=== PATIENT | female | born 1945 | race African-American/Black ===

== ENCOUNTER 2017-04-28 22:39 | Inpatient (IN) | payer OTHER, BC ==
[~2017-04-28] VITALS: Ht 167.6 cm; Wt 53.9 kg
--- NOTE | ~2017-04-28 | EKG ---
[place] [address] [facility] [place] [address] ELECTROCARDIOGRAM REPORT Name: LIZMARIE Room #: 206-P ADM IN M.R.#: [id number] Admission: 04/29/17 Attend Phys: Humphrey Ornelas DO Discharge: Date of : 41 Report #: [id number] THIS REPORT FOR: //name// [facility] Test Date: 2017-04-29 Test Time: 09:48:05 Pat Name: MARIE HILL Department: Room: 206 Gender: F Activity Therapy Specialist: Tanvi JUAREZ : 1945 Requested By: Humphrey Ornelas Order Number: [id number] MD: Fco Yadav Measurements Intervals [place] Rate: 115 P: 77 OR: 173 QRS: 82 QRSD: 88 T: 59 QT: 323 QTc: 447 Interpretive Statements Sinus tachycardia Occasional premature ventricular complexes Biatrial enlargement Baseline wander in lead(s) V6 Compared to ECG 12/09/2014 14:39:22 premature ventricular complexes are now present Electronically Signed On 05-01-2017 13:09:31 CDT by Fco Yadav [email or web address] <ELECTRONICALLY SIGNED> By: Fco Yadav MD, [facility] 05/01/17 1309 0948 0948 Fco Yadav MD, [facility] /EPI
--- NOTE | ~2017-04-28 | 2DMMODE ---
[facility] [address] [facility] [place] [address] 2 D/M-MODE ECHOCARDIOGRAM Name: MARIE HILL Room #: 206-P [facility] IN M.R.#: [id number] Admission: 04/29/17 Attend Phys: Humphrey Ornelas, Discharge: Date of : 41 Date of Service: 04/30/171954 Report #: [id number] THIS REPORT FOR: //name// APPROVED REPORT Study performed: 04/30/2017 11:12:54 EXAM: Comprehensive 2D, Doppler, and color-flow Echocardiogram Patient Location: Bedside Room #: 206 Status: on-call Other Information Study Quality: Adequate Indications COPD Dyspnea Hypertension/HDD 2D Dimensions LVEF(%): 65.21 (>50%) IVSd: 12.11 (7-11mm) LVOT Diam: 19.00 (18-24mm) LVDd: 30.79 mm PWd: 11.58 (7-11mm) Ascending Ao: 22.71 (22-36mm) LVDs: 20.15 (25-40mm) Aortic Root: 26.78 mm Brock's LVEF: 65.21 % Volumes Left Atrial Volume (Systole) Single Plane 4CH: 23.33 mL Single Plane 2CH: 21.04 mL LA ESV Index: 16.00 mL/m2 Aortic Valve AoV Peak Jeremy.: 1.42 m/s AO Peak Gr.: 9.12 mmHg LVOT Max P.81 mmHg LVOT Max V: 0.84 m/s THELMA Vmax: 1.62 cm2 Mitral Valve E/A Ratio: 0.8 MV Decel. Time: 186.06 ms MV E Max Jeremy.: 0.79 m/s MV A Jeremy.: 0.99 m/s [facility] [place] [address] 2 D/M-MODE ECHOCARDIOGRAM Name: LIZMARIE Room #: 206-P [facility] IN M.R.#: [id number] Admission: 04/29/17 Attend Phys: Humphrey Ornelas, Discharge: Date of : 41 Date of Service: 04/30/171954 Report #: [id number] MV PHT: 53.96 ms IVRT: 73.82 ms Pulmonary Valve PV Peak Jeremy.: 0.81 m/s PV Peak Gr.: 2.67 mmHg Tricuspid Valve TR Peak Jeremy.: 3.98 m/s RAP Estimate: 5.00 mmHg TR Peak Gr.: 63.00 mmHg PA Pressure: 68.00 mmHg Left Ventricle The left ventricle is normal size. There is normal LV segmental wall motion. Mild concentric left ventricular hypertrophy. Left ventricular systolic function is normal. The left ventricular ejection fraction is within the normal range. Grade I - abnormal relaxation pattern. Right Ventricle The right ventricle is normal size. The right ventricular systolic function is normal. Atria The left atrium size is normal. The right atrium size is normal. Aortic Valve The aortic valve is normal in structure. No aortic regurgitation is present. There is no aortic valvular stenosis. Mitral Valve The mitral valve is normal in structure. There is no mitral valve regurgitation noted. No evidence of mitral valve stenosis. Tricuspid Valve The tricuspid valve is normal in structure. Mild tricuspid regurgitation. Pulmonic Valve The pulmonary valve is normal in structure. There is no pulmonic valvular regurgitation. Great Vessels The aortic root is normal in size. IVC is normal in size and collapses with >50% inspiration [facility] [address] [place] [address] 2 D/M-MODE ECHOCARDIOGRAM Name: MARIE HILL Room #: 206-P [facility] IN M.R.#: [id number] Admission: 04/29/17 Attend Phys: Humphrey Ornelas, Discharge: Date of : 41 Date of Service: 04/30/171954 Report #: [id number] Pericardium There is no pericardial effusion. <Conclusion> The left ventricle is normal size. Mild concentric left ventricular hypertrophy. Left ventricular systolic function is normal. The left ventricular ejection fraction is within the normal range. Grade I - abnormal relaxation pattern. The right ventricle is normal size. The left atrium size is normal. The right atrium size is normal. No aortic regurgitation is present. There is no mitral valve regurgitation noted. Mild tricuspid regurgitation. There is no pericardial effusion. <ELECTRONICALLY SIGNED> By: Foreign Luz MD, FACC 04/30/171954 54 54 Foreign Luz MD, FACC /INF
[~2017-04-28 22:39] MED LIST: AMLODIPINE BESY10 MG PO; CITRATE OF MAG296 ML PO; LACTASE ENZ4500 UNIT PO; NEXIUM40 MG PO; SLOW-MAG64 MG PO; SPIRIVA INH; SYMBICORT160 MCG/4. INH; VENTOLIN HFA 1818 GM INH
[2017-04-28 22:40] VITALS: BP 187/91
[2017-04-28 23:45] LABS: BASOPHILS 0.4 % (0.0-2.0); EOSINOPHILS 0.3 % (0.0-3.0); HEMATOCRIT 48.9 % (37.0-47.0); HEMOGLOBIN 15.6 gm/dL (12.0-15.0); LYMPHOCYTES 22.3 % (24.0-44.0); MCH 27.5 pg (26.0-34.0); MCHC 31.8 g/dL (28.0-37.0); MCV 86.4 fL (80.0-100.0); MONOCYTES 7.8 % (1.0-8.0); PLATELET COUNT 181 thou/uL (150-400); POLYS 69.2 % (36.0-66.0); RBC 5.66 mil/uL (4.20-5.00); RDW 15.1 % (10.5-14.5); WBC 8.7 thou/uL (4.0-11.0)
[2017-04-28 23:47] LABS: CALCIUM 10.1 mg/dL (8.5-10.1); CREATININE 1.2 mg/dL (0.6-1.0); POTASSIUM 4.1 mmol/L (3.5-5.1)
[2017-04-28 23:49] LABS: MANUAL DIFF NO
[2017-04-29 02:00] VITALS: BP 159/84
[2017-04-29 02:30] VITALS: BP 182/86
[2017-04-29 07:05] VITALS: BP 171/75
[2017-04-29 09:26] LABS: ABG SAMPLE TYPE ARTERIAL; BE(vivo) 0.2 mmol/L (-2 to +3); HCO3 27.9 mmol/L (22.0-26.0); LACTATE 2.12 mmol/L (0.5-2.0); O2(CT) 21.3 mL/dL (15.0-23.0); O2Hb 89.7 % (92.0-98.0); PCO2 56.2 mmHg (35.0-45.0); PO2 62.3 mmHg (80.0-100.0); sO2 89.5 % (92.0-98.0); tCO2 29.6 mmol/L (24.0-30.0)
[2017-04-29 09:27] LABS: STICK SITE L.RADIAL; pH 7.313 (7.360-7.450)
[2017-04-29 14:25] LABS: HEMATOCRIT 49.3 % (37.0-47.0); HEMOGLOBIN 15.7 gm/dL (12.0-15.0); MCH 27.5 pg (26.0-34.0); MCHC 31.8 g/dL (28.0-37.0); MCV 86.5 fL (80.0-100.0); RBC 5.69 mil/uL (4.20-5.00); RDW 15.1 % (10.5-14.5); WBC 15.6 thou/uL (4.0-11.0)
[2017-04-29 15:05] VITALS: BP 133/75
[2017-04-29 19:42] VITALS: BP 161/84
[2017-04-29 21:49] LABS: INR 1.1; PROTIME 11.8 Seconds (9.3-11.4)
[2017-04-29 21:55] LABS: APTT 107.3 Seconds (24.5-32.8)
[2017-04-30 04:35] VITALS: BP 126/68
[2017-04-30 07:46] LABS: CALCIUM 10.5 mg/dL (8.5-10.1); CREATININE 2.1 mg/dL (0.6-1.0); POTASSIUM 4.6 mmol/L (3.5-5.1)
[2017-04-30 07:50] VITALS: BP 126/77
[2017-04-30 12:10] VITALS: BP 134/67
[2017-04-30 16:45] VITALS: BP 142/76
[2017-04-30 19:52] VITALS: BP 147/79
[2017-05-01 04:10] VITALS: BP 120/61
[2017-05-01 05:28] LABS: HEMATOCRIT 43.3 % (37.0-47.0); HEMOGLOBIN 14.1 gm/dL (12.0-15.0); MCH 27.7 pg (26.0-34.0); MCHC 32.7 g/dL (28.0-37.0); MCV 84.7 fL (80.0-100.0); PLATELET COUNT 175 thou/uL (150-400); RBC 5.11 mil/uL (4.20-5.00); RDW 15.1 % (10.5-14.5); WBC 17.2 thou/uL (4.0-11.0)
[2017-05-01 05:32] LABS: MANUAL DIFF YES
[2017-05-01 05:40] LABS: CALCIUM 10.1 mg/dL (8.5-10.1); CREATININE 1.8 mg/dL (0.6-1.0); POTASSIUM 4.7 mmol/L (3.5-5.1)
[2017-05-01 07:03] LABS: ABSOLUTE NEUTROPHILS 16.2 thou/uL (1.4-8.2); PLATELET ESTIMATE NORMAL; TOTAL CELL COUNT 100
[2017-05-01 07:35] VITALS: BP 139/71
[2017-05-01 11:10] VITALS: BP 109/61
[2017-05-01 15:35] VITALS: BP 148/71
[2017-05-01 20:41] VITALS: BP 161/80
[2017-05-01 22:09] VITALS: BP 156/74
[2017-05-02 04:41] VITALS: BP 148/78
[2017-05-02 07:45] VITALS: BP 129/68
[2017-05-02 11:35] VITALS: BP 158/80
[2017-05-02 15:40] VITALS: BP 172/76
[2017-05-02 19:46] VITALS: BP 174/86
[2017-05-02 23:43] VITALS: BP 150/84
[2017-05-03 07:06] LABS: HEMATOCRIT 43.5 % (37.0-47.0); MCH 27.3 pg (26.0-34.0); MCHC 32.1 g/dL (28.0-37.0); MCV 85.1 fL (80.0-100.0); PLATELET COUNT 199 thou/uL (150-400); RBC 5.11 mil/uL (4.20-5.00); RDW 15.4 % (10.5-14.5); WBC 11.3 thou/uL (4.0-11.0)
[2017-05-03 07:14] LABS: MANUAL DIFF YES
[2017-05-03 07:54] VITALS: BP 152/73
[2017-05-03 07:57] LABS: CALCIUM 10.7 mg/dL (8.5-10.1); POTASSIUM 4.8 mmol/L (3.5-5.1)
[2017-05-03 08:24] LABS: ABSOLUTE NEUTROPHILS 10.7 thou/uL (1.4-8.2); ANISOCYTOSIS 1+; METAMYELOCYTES 1 %; TOTAL CELL COUNT 100
[2017-05-03 12:15] VITALS: BP 145/71
[2017-05-03 15:50] VITALS: BP 1332/55
[2017-05-03] MEDS ORDERED: HEPARIN SO5000 UNIT/ SUBQ (16:22)
[2017-05-03] MEDS ORDERED: CARDIZEM CD 18180 M3 PO (16:22)
[2017-05-03] MEDS ORDERED: DUONEB 2.5-0.5 M3 ML INH (16:22)
[2017-05-03] MEDS ORDERED: LEVAQUIN 750 M750 MG PO (16:22)
[2017-05-03] MEDS ORDERED: PEPCID20 MG PO (16:23)
[2017-05-03] MEDS ORDERED: SOLU-MEDRO125 MG/24 IV PUSH (16:23)
[2017-05-03] MEDS ORDERED: ALPRAZOLAM 0.50.5 MG PO (16:23)
[2017-05-03 17:07] VITALS: BP 145/71
== END 2017-05-03 18:15 | DRG 871 ==
LOC: ER 22:39 → 4E 04-29 01:39 → 2N 04-29 01:39 → EROBS 04-29 01:39 → 2N 04-29 02:24 → 4E 04-29 02:31 → 2N 04-29 10:29
PROVIDERS: Emergency Medicine; Family Medicine; Internal Medicine Geriatric Medicine; Internal Medicine Pulmonary Disease
PROC: 5A09357 Assistance with Respiratory Ventilation, Less than 24 Consecutive Hours, Continuous Positive Airway Pressure (ICD-10-PCS; principal; 2017-04-29)
DX: A41.9 Sepsis, unspecified organism (principal); J96.21 Acute and chronic respiratory failure with hypoxia; J96.22 Acute and chronic respiratory failure with hypercapnia; N17.9 Acute kidney failure, unspecified; J44.1 Chronic obstructive pulmonary disease with (acute) exacerbation; E46 Unspecified protein-calorie malnutrition; Z68.1 Body mass index [BMI] 19.9 or less, adult; I27.2 Other secondary pulmonary hypertension; I27.81 Cor pulmonale (chronic); K21.9 Gastro-esophageal reflux disease without esophagitis; I12.9 Hypertensive chronic kidney disease with stage 1 through stage 4 chronic kidney disease, or unspecified chronic kidney disease; N18.9 Chronic kidney disease, unspecified; N60.19 Diffuse cystic mastopathy of unspecified breast; Z79.899 Other long term (current) drug therapy; Z88.8 Allergy status to other drugs, medicaments and biological substances; Z91.041 Radiographic dye allergy status; Z87.891 Personal history of nicotine dependence
CPT/HCPCS: 10081

== ENCOUNTER 2017-05-03 14:32 | Inpatient (IN) | payer OTHER, BC ==
[~2017-05-03] VITALS: Ht 167.6 cm; Wt 53.5 kg
[2017-05-03] MEDS ORDERED: CARDIZEM CD 18180 M3 PO (16:22)
[2017-05-03] MEDS ORDERED: HEPARIN SO5000 UNIT/ SUBQ (16:22)
[2017-05-03] MEDS ORDERED: LEVAQUIN 750 M750 MG PO (16:22)
[2017-05-03] MEDS ORDERED: DUONEB 2.5-0.5 M3 ML INH (16:22)
[2017-05-03] MEDS ORDERED: PEPCID20 MG PO (16:23)
[2017-05-03] MEDS ORDERED: SOLU-MEDRO125 MG/24 IV PUSH (16:23)
[2017-05-03] MEDS ORDERED: ALPRAZOLAM 0.50.5 MG PO (16:23)
[2017-05-03 19:00] VITALS: BP 145/84
[2017-05-04 06:32] VITALS: BP 135/68
[2017-05-04 15:30] VITALS: BP 162/74
[2017-05-05 04:40] VITALS: BP 147/72
[2017-05-05 16:00] VITALS: BP 133/77
[2017-05-06 04:00] VITALS: BP 142/76
[2017-05-06 16:00] VITALS: BP 146/85
[2017-05-07 04:23] VITALS: BP 156/68
[2017-05-07 15:45] VITALS: BP 166/78
[2017-05-08 05:49] VITALS: BP 159/81
[2017-05-08 15:45] VITALS: BP 156/60
[2017-05-09 05:41] VITALS: BP 163/82
[2017-05-09 09:00] VITALS: BP 151/72
[2017-05-09 16:00] VITALS: BP 147/74
[2017-05-10 04:00] VITALS: BP 162/72
[2017-05-10 10:19] LABS: ABG SAMPLE TYPE ARTERIAL; BE(vivo) 16.9 mmol/L (-2 to +3); HCO3 44.8 mmol/L (22.0-26.0); LACTATE 1.89 mmol/L (0.5-2.0); O2(CT) 20.4 mL/dL (15.0-23.0); O2Hb 93.3 % (92.0-98.0); PO2 66.4 mmHg (80.0-100.0); pH 7.453 (7.360-7.450); sO2 93.3 % (92.0-98.0); tCO2 46.8 mmol/L (24.0-30.0)
[2017-05-10 10:20] LABS: PCO2 65.5 mmHg (35.0-45.0)
[2017-05-10 10:21] LABS: STICK SITE R.BRACHIAL
[2017-05-10 12:22] LABS: HEMATOCRIT 45.9 % (37.0-47.0); HEMOGLOBIN 14.8 gm/dL (12.0-15.0); MCH 27.4 pg (26.0-34.0); MCHC 32.3 g/dL (28.0-37.0); MCV 85.1 fL (80.0-100.0); PLATELET COUNT 242 thou/uL (150-400); RBC 5.39 mil/uL (4.20-5.00); RDW 14.1 % (10.5-14.5); WBC 15.6 thou/uL (4.0-11.0)
[2017-05-10 12:23] LABS: MANUAL DIFF YES
[2017-05-10 12:30] LABS: BUN 21 mg/dL (7-18); CALCIUM 11.7 mg/dL (8.5-10.1); CHLORIDE 91 mmol/L (98-107); GLUCOSE 126 mg/dL (74-106); POTASSIUM 3.8 mmol/L (3.5-5.1); SODIUM 133 mmol/L (136-145)
[2017-05-10 12:47] LABS: ANION GAP < 0 mmol/L (7-16); CO2 43 mmol/L (21-32)
[2017-05-10 13:42] LABS: ABSOLUTE NEUTROPHILS 14.4 thou/uL (1.4-8.2); TOTAL CELL COUNT 100
[2017-05-10 16:00] VITALS: BP 184/90
[2017-05-11 05:43] VITALS: BP 148/67
[2017-05-11 10:27] LABS: URINE BILIRUBIN NEGATIVE (Negative); URINE BLOOD NEGATIVE (Negative); URINE COLOR YELLOW; URINE GLUCOSE-RANDOM* NEGATIVE (Negative); URINE KETONES NEGATIVE (Negative); URINE LEUKOCYTES-REFLEX NEGATIVE (Negative); URINE PROTEIN (DIPSTICK) NEGATIVE (Negative); URINE SPECIFIC GRAVITY <= 1.005 (1.003-1.035); URINE UROBILINOGEN 0.2 E.U./dl (0.2-1.0)
[2017-05-11 16:00] VITALS: BP 139/57
[2017-05-11 17:09] LABS: ALBUMIN 3.6 g/dL (2.9-4.4); ALPHA 1 0.2 g/dL (0.0-0.4); BETA 0.8 g/dL (0.7-1.3); GAMMA 1.5 g/dL (0.4-1.8); M-SPIKE Not Observed g/dL (Not Observed)
[2017-05-11 17:48] LABS: ABG SAMPLE TYPE ARTERIAL; BE(vivo) 15.3 mmol/L (-2 to +3); HCO3 42.8 mmol/L (22.0-26.0); LACTATE 2.61 mmol/L (0.5-2.0); O2(CT) 16.6 mL/dL (15.0-23.0); O2Hb 76.5 % (92.0-98.0); PCO2 62.7 mmHg (35.0-45.0); PO2 39.2 mmHg (80.0-100.0); pH 7.452 (7.360-7.450); sO2 74.6 % (92.0-98.0); tCO2 44.7 mmol/L (24.0-30.0)
[2017-05-11 17:50] LABS: STICK SITE L.RADIAL
[2017-05-11 19:20] VITALS: BP 171/74
[2017-05-12 04:11] VITALS: BP 151/78
[2017-05-12 07:37] LABS: ABG SAMPLE TYPE ARTERIAL; BE(vivo) 17.2 mmol/L (-2 to +3); HCO3 45.5 mmol/L (22.0-26.0); LACTATE 2.04 mmol/L (0.5-2.0); O2(CT) 19.4 mL/dL (15.0-23.0); O2Hb 93.8 % (92.0-98.0); PO2 75.6 mmHg (80.0-100.0); pH 7.435 (7.360-7.450); tCO2 47.6 mmol/L (24.0-30.0)
[2017-05-12 07:38] LABS: PCO2 69.3 mmHg (35.0-45.0); STICK SITE L.BRACHIAL
[2017-05-12 16:12] VITALS: BP 174/56
[2017-05-12] MEDS ORDERED: BUSPIRONE HCL5 MG PO (21:55)
[2017-05-12] MEDS ORDERED: LEVAQUIN 750 M750 MG PO (21:55)
[2017-05-12] MEDS ORDERED: DUONEB 2.5-0.5 M3 ML INH (21:55)
[2017-05-12] MEDS ORDERED: COLACE100 MG PO (21:55)
[2017-05-12] MEDS ORDERED: BAYER CHEWABLE81 MG PO (21:55)
[2017-05-12] MEDS ORDERED: PREDNISONE 10 M10 MG PO ×2 (21:55→21:59)
[2017-05-13 06:43] VITALS: BP 159/80
[2017-05-13 15:15] VITALS: BP 163/56
[2017-05-13] MEDS ORDERED: XANAX 0.25 MG0.25 MG PO (20:16)
[2017-05-14 06:51] VITALS: BP 164/68
== END 2017-05-14 10:22 | DRG 947 ==
LOC: 2N 18:55 → TBA 05-04 09:28
PROVIDERS: Hospitalist; Internal Medicine Pulmonary Disease; Nurse Practitioner; Physical Medicine & Rehabilitation
PROC: 5A09357 Assistance with Respiratory Ventilation, Less than 24 Consecutive Hours, Continuous Positive Airway Pressure (ICD-10-PCS; principal; 2017-05-12)
DX: R53.81 Other malaise (principal); J96.21 Acute and chronic respiratory failure with hypoxia; J96.22 Acute and chronic respiratory failure with hypercapnia; N17.9 Acute kidney failure, unspecified; R64 Cachexia; J44.1 Chronic obstructive pulmonary disease with (acute) exacerbation; E87.2 Acidosis; E46 Unspecified protein-calorie malnutrition; Z68.1 Body mass index [BMI] 19.9 or less, adult; I27.2 Other secondary pulmonary hypertension; K59.00 Constipation, unspecified; J30.2 Other seasonal allergic rhinitis; I10 Essential (primary) hypertension; N18.9 Chronic kidney disease, unspecified; K21.9 Gastro-esophageal reflux disease without esophagitis; I12.9 Hypertensive chronic kidney disease with stage 1 through stage 4 chronic kidney disease, or unspecified chronic kidney disease; F41.1 Generalized anxiety disorder; F40.00 Agoraphobia, unspecified; F32.9 Major depressive disorder, single episode, unspecified; Z88.8 Allergy status to other drugs, medicaments and biological substances; Z91.041 Radiographic dye allergy status; Z83.6 Family history of other diseases of the respiratory system
CPT/HCPCS: 10112

== ENCOUNTER 2017-05-18 16:08 | Inpatient (IN) | payer OTHER, BC ==
[~2017-05-18] VITALS: Ht 170.2 cm; Wt 69.2 kg
[2017-05-18] VITALS (19 sets, daily range): BP systolic 119–204; BP diastolic 57–129
--- NOTE | ~2017-05-18 | HC ---
[facility] [place] [address] CONSULTATION Name: MARIE HILL Room #: 214-P [facility] IN M.R.#: [id number] Admission: 05/18/17 Attend Phys: Chaim Matos Discharge: Date of : 41 Report #: [id number] THIS REPORT FOR: //name// CC: Chaim Sosadee deealdo Choco Prater DATE OF SERVICE: 05/24/2017 Calcium slightly higher at 10.4, phosphorus 2.1, ionized calcium elevated at 6.5. Heart rate down. The patient much more alert and eating with assistance by her daughter. Now on antithyroid medication in the form of methimazole 10 mg b.i.d.; however, this will take days to weeks to become effective as it will do nothing with a previously manufactured thyroid hormone, but only help to prevent formation of a subsequent thyroid hormone. Current corticosteroids will help somewhat. Beta blockers if potentially useful in the low dose may be helpful and avoidance of dehydration. We will help to keep the calcium under control. The patient is now receiving range of motion exercises for 15 minutes q.i.d. in an effort to lower calcium mobilization and prevent immobilization. We will continue current regimen. <ELECTRONICALLY SIGNED> By: Panda Dias MD 05/25/17 0829 1308 1604 Panda Dias MD /nt
--- NOTE | ~2017-05-18 | HC ---
[facility] [place] [place] [address] CONSULTATION Name: MARIE HILL Room #: 210-P [facility] IN M.R.#: [id number] Admission: 05/18/17 Attend Phys: Chaim Matos Discharge: Date of : 41 Report #: [id number] THIS REPORT FOR: //name// CC: Chaim Sosadee deealdo Wilhelm Moi DATE OF SERVICE: 05/27/2017 Continuing current medication. However, the patient is now on comfort care only. Therefore, I have suspended any laboratory followup and will sign off patient's case at this time. If conditions change and further treatment of endocrine disorder is indicated, please do not hesitate to recontact me. <ELECTRONICALLY SIGNED> By: Panda Dias MD 05/27/17 1624 1105 1135 Panda Dias MD /nt
--- NOTE | ~2017-05-18 | HC ---
[facility] [place] [address] CONSULTATION Name: LIZMARIE Room #: 210-P ADM IN M.R.#: [id number] Admission: 05/18/17 Attend Phys: Chaim Matos Discharge: Date of : 41 Report #: [id number] THIS REPORT FOR: //name// CC: Chaim Wilhelm Moi DATE OF SERVICE: 05/26/2017 ENDOCRINE PROGRESS NOTE The patient continues slow improvement. Heart rate down and lab improving with calcium and phosphorus 10.1 and 2.8 respectively with focus on decreasing calcium mobilization through physical activity and now low-dose beta blockade. Continuing high-dose methimazole loading to eventually lower thyroid level. We will continue current regimen and monitoring. <ELECTRONICALLY SIGNED> By: Panda Dias MD 05/27/17 1054 1103 1155 Panda Dias MD /nt
--- NOTE | ~2017-05-18 | EKG ---
[address] [address] ELECTROCARDIOGRAM REPORT Name: MARIE HILL Room #: 170-8 ADM IN M.R.#: [id number] Admission: 05/18/17 Attend Phys: Chaim Matos Discharge: Date of : 41 Report #: [id number] THIS REPORT FOR: //name// [facility] Test Date: 2017-05-18 Test Time: 16:34:11 Pat Name: MARIE HILL Department: Room: 170 Gender: F Day Treatment Clinician/Art Therapist: MZOOK : 1945 Requested By: Zuleima Patel Order Number: [id number] MD: Fco Yadav Measurements Intervals [place] Rate: 93 P: 85 UT: 118 QRS: 47 QRSD: 83 T: 71 QT: 342 QTc: 426 Interpretive Statements Sinus rhythm Borderline short UT interval Right atrial enlargement Borderline T abnormalities, lateral leads Compared to ECG 04/29/2017 09:48:05 Sinus tachycardia no longer present Ventricular premature complex(es) no longer present Electronically Signed On 05-18-2017 17:22:38 CDT by Fco Yadav [email or web address] <ELECTRONICALLY SIGNED> By: Fco Yadav MD, FACC 05/18/17 1722 1634 1634 Fco Yadav MD, [facility] /EPI
--- NOTE | ~2017-05-18 | HC ---
[facility] [place] [address] CONSULTATION Name: MARIE HILL Room #: 214-P [facility] IN M.R.#: [id number] Admission: 05/18/17 Attend Phys: Chaim Matos Discharge: Date of : 41 Report #: [id number] THIS REPORT FOR: //name// CC: Chaim LuMikki Prater DATE OF SERVICE: 05/23/2017 ENDOCRINE CONSULTATION PATIENT ____ OF: Chaim Gallo MD. SUBJECTIVE: Prolonged admission for this 72-year-old black female admitted for respiratory failure, hypercapnia, pneumonia, etc. During her hospitalization, the patient has been found to be hypercalcemic with an elevated ionized calcium and intact PTH level. She has no prior history of hypercalcemia according to the daughter from whom most of the information is obtained and there is no family history of calcium disorders. The patient has not been on hydrochlorothiazide or other medication that can elevate calcium. In addition, the patient's thyroid function has been elevated with a depressed TSH repeated on several recent occasions. There is no personal or family history of thyroid disease and the patient has not been on amiodarone or other medication that can cause thyroid abnormalities. CURRENT MEDICATIONS: At the time of consultation include prednisone nasal spray, calcitonin, diltiazem, enoxaparin, famotidine, levofloxacin, tobramycin, lactase, piperacillin, lispro insulin by sliding scale, lorazepam, hydralazine, alprazolam, magnesium sulfate, magnesium oxide, potassium chloride, zolpidem, p.r.n. nitroglycerin, ondansetron, morphine, acetaminophen, methylprednisolone and possibly other medication. Otherwise, there is no pertinent personal or family history to report at this time. OBJECTIVE: LABORATORY DATA: From earlier on this admission, sodium 137, potassium 4.1, chloride 99, CO2 42, BUN 35, creatinine 1.0, glucose 265, AST 20, bilirubin 0.3, calcium 10.2 (but has been as high as 11.7 during this admission) phosphorus 2.4, magnesium 2.2, alkaline phosphatase 91, SGPT 40, total protein 5.3, albumin 2.1, free T4 was 0.92, TSH 0.065. Ionized calcium 6.0. PHYSICAL EXAMINATION: GENERAL: Frail 72-year-old black female in no acute distress, but does not respond to verbal or tactile stimuli. The patient has muscle wasting and what appear to be contractures throughout. VITAL SIGNS: Weight is reported to be 120 pounds, height 5 feet [place] [address] CONSULTATION Name: MARIE HILL Room #: 214-P [facility] IN M.R.#: [id number] Admission: 05/18/17 Attend Phys: Chaim Matos Discharge: Date of : 41 Report #: [id number] patient is afebrile, heart rate 104 and regular, blood pressure 150/76. SKIN: Shows decreased turgor throughout. PERRL. NECK: Supple. Thyroid is firm and full without nodularity, it is difficult to evaluate properly due to lack of patient cooperation. CHEST: Shows scattered rhonchi and decreased breath sounds. HEART: Regular rhythm without murmurs, rubs or gallops. ABDOMEN: Benign, without masses, tenderness or organomegaly. Bowel sounds active. EXTREMITIES: Show no edema, cyanosis or clubbing. Peripheral pulses 2+ and equal bilaterally. ASSESSMENT: 1. Hypercalcemia with mildly elevated ionized calcium and intact PTH level, while this may be due to a small parathyroid adenoma, which is fairly common in this age group. It could also be due to hypermetabolism due to her apathetic hyperthyroidism and increased calcium mobilization due to patient's own immobilization and the lack of muscle movement. 2. 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 PLAN: 1. We will discontinue calcitonin, which is in factual is a calcium lowering agent. The patient could respond to IV calcium antagonist, but is not in sufficiently emergent situation to utilize his potentially dangerous agents. She also may respond to low dose beta blockers, which will decrease calcium mobilization. In addition, I plan to initiate passive range of motion exercises for all four extremities, again to lower excessive calcium mobilization. 2. We will initiate methimazole at high doses, although it will take days to weeks to begin to lower thyroid function. The patient may also benefit from low dose beta blockade if this can be initiated safely, particularly should she develop further tachycardia. Thank you very much for this consultation. I will continue to follow the patient with you for evaluation of hypercalcemia and hyperthyroidism. <ELECTRONICALLY SIGNED> By: Panda Dias MD 05/24/17 1242 1345 1436 Panda Dias MD /nt
--- NOTE | ~2017-05-18 | HC ---
[facility] [place] [address] CONSULTATION Name: MARIE HILL Room #: 214-P [facility] IN M.R.#: [id number] Admission: 05/18/17 Attend Phys: Chaim Matos Discharge: Date of : 41 Report #: [id number] THIS REPORT FOR: //name// CC: Chaim Wilhelm Moi DATE OF SERVICE: 05/25/2017 ENDOCRINE PROGRESS NOTE Continuing current therapy with methimazole and physical therapy to reduce hypercalcemia from immobilization. Calcium and phosphorus slightly worsened, but acceptable at 10.6 and 2.0 respectively. It will still be a significant length of time before methimazole effects can be realized, currently increases in physical activity are the most important therapy for preventing significant hypercalcemia that would require acute therapy such as pamidronate. <ELECTRONICALLY SIGNED> By: Panda Dias MD 05/26/17 1041 0838 1000 Panda Dias MD /nt
[~2017-05-18 16:08] MED LIST changes: +ALPRAZOLAM 0.50.5 MG PO; +BAYER CHEWABLE81 MG PO; +BUSPIRONE HCL5 MG PO; +CARDIZEM CD 18180 M3 PO; +COLACE100 MG PO; +DUONEB 2.5-0.5 M3 ML INH; +HEPARIN SO5000 UNIT/ SUBQ; +LEVAQUIN 750 M750 MG PO; +PEPCID20 MG PO; +PREDNISONE 10 M10 MG PO; +SOLU-MEDRO125 MG/24 IV PUSH; +XANAX 0.25 MG0.25 MG PO
[2017-05-18 16:18] LABS: ABG SAMPLE TYPE ARTERIAL; BE(vivo) 20.2 mmol/L (-2 to +3); HCO3 51.5 mmol/L (22.0-26.0); LACTATE 0.99 mmol/L (0.5-2.0); O2(CT) 15.9 mL/dL (15.0-23.0); pH 7.336 (7.360-7.450); sO2 81.2 % (92.0-98.0); tCO2 54.6 mmol/L (24.0-30.0)
[2017-05-18 16:19] LABS: O2Hb 83.2 % (92.0-98.0); PCO2 98.6 mmHg (35.0-45.0); PO2 51.5 mmHg (80.0-100.0); STICK SITE L.RADIAL
[2017-05-18 16:27] LABS: HEMOGLOBIN 12.2 gm/dL (12.0-15.0); MCH 27.2 pg (26.0-34.0); MCHC 31.3 g/dL (28.0-37.0); PLATELET COUNT 203 thou/uL (150-400); RBC 4.48 mil/uL (4.20-5.00); RDW 14.8 % (10.5-14.5); WBC 18.5 thou/uL (4.0-11.0)
[2017-05-18 16:29] LABS: MANUAL DIFF YES
[2017-05-18] MEDS ORDERED: ACIDOPHILUS LA1 EAC1 PO (16:35)
[2017-05-18 16:36] LABS: BUN 29 mg/dL (7-18); CALCIUM 11.6 mg/dL (8.5-10.1); POTASSIUM 4.3 mmol/L (3.5-5.1); SODIUM 145 mmol/L (136-145)
[2017-05-18] MEDS ORDERED: PREDNISONE 10 M10 MG PO (16:36)
[2017-05-18] MEDS ORDERED: PAXIL10 MG PO (16:36)
[2017-05-18 16:57] LABS: CHLORIDE 101 mmol/L (98-107); CREATININE 1.1 mg/dL (0.6-1.0); GLUCOSE 174 mg/dL (74-106)
[2017-05-18 17:00] LABS: CO2 > 45 mmol/L (21-32)
[2017-05-18 17:06] LABS: TOTAL CELL COUNT 100
[2017-05-18 17:07] LABS: ANISOCYTOSIS 1+; LARGE PLATELETS FEW; MICROCYTES SLIGHT; POLYCHROMASIA SLIGHT; SCHISTOCYTES FEW
[2017-05-18 17:28] LABS: URINE BILIRUBIN NEGATIVE (Negative); URINE BLOOD 2+ (Negative); URINE COLOR YELLOW; URINE GLUCOSE-RANDOM* NEGATIVE (Negative); URINE KETONES NEGATIVE (Negative); URINE NITRITE NEGATIVE (Negative); URINE PROTEIN (DIPSTICK) 1+ (Negative); URINE SPECIFIC GRAVITY 1.015 (1.003-1.035)
[2017-05-18 17:40] LABS: SQUAMOUS 0-3 Few /LPF (0-3)
[2017-05-18 17:41] LABS: AMORPHOUS URATES Many /LPF (None Seen); CASTS None Seen /LPF (None Seen); URINE RBC 3-10 Few /HPF (0-2)
[2017-05-18 17:52] LABS: ABG SAMPLE TYPE ARTERIAL; BE(vivo) 18.6 mmol/L (-2 to +3); HCO3 48.7 mmol/L (22.0-26.0); O2(CT) 16.8 mL/dL (15.0-23.0); O2Hb 93.7 % (92.0-98.0); PO2 77.3 mmHg (80.0-100.0); sO2 93.9 % (92.0-98.0); tCO2 51.5 mmol/L (24.0-30.0)
[2017-05-18 17:53] LABS: PCO2 90.3 mmHg (35.0-45.0); STICK SITE L.RADIAL
[2017-05-18 17:54] LABS: Pressure Support 16 cm H20; VDS BIPAP SPONT TIMED cc
[2017-05-19] VITALS (53 sets, daily range): BP systolic 106–177; BP diastolic 53–109
[2017-05-19 05:04] LABS: HEMATOCRIT 37.3 % (37.0-47.0); HEMOGLOBIN 11.9 gm/dL (12.0-15.0); MCH 27.4 pg (26.0-34.0); MCHC 31.8 g/dL (28.0-37.0); MCV 86.4 fL (80.0-100.0); RBC 4.32 mil/uL (4.20-5.00); RDW 14.5 % (10.5-14.5); WBC 14.2 thou/uL (4.0-11.0)
[2017-05-19 05:17] LABS: ALBUMIN 2.4 g/dL (3.4-5.0); ALKALINE PHOSPHATASE 65 U/L (46-116); ANION GAP < 0 mmol/L (7-16); BUN 29 mg/dL (7-18); CALCIUM 11.4 mg/dL (8.5-10.1); CHLORIDE 102 mmol/L (98-107); CO2 44 mmol/L (21-32); CREATININE 0.9 mg/dL (0.6-1.0); GLUCOSE 130 mg/dL (74-106); POTASSIUM 4.2 mmol/L (3.5-5.1); SGOT 20 U/L (15-37); SGPT 29 U/L (30-65); SODIUM 145 mmol/L (136-145); TOTAL BILIRUBIN 0.6 mg/dL (<0.1-1.0); TOTAL PROTEIN 6.2 g/dL (6.4-8.2); TROPONIN-I 0.06 ng/mL (<0.04-0.07)
[2017-05-19 05:35] LABS: ABG SAMPLE TYPE ARTERIAL; HCO3 45.8 mmol/L (22.0-26.0); LACTATE 0.93 mmol/L (0.5-2.0); O2(CT) 16.8 mL/dL (15.0-23.0); O2Hb 94.4 % (92.0-98.0); PO2 79.3 mmHg (80.0-100.0); pH 7.383 (7.360-7.450); sO2 94.9 % (92.0-98.0); tCO2 48.2 mmol/L (24.0-30.0)
[2017-05-19 05:36] LABS: PCO2 78.7 mmHg (35.0-45.0); Pressure Support 10 cm H20; STICK SITE R.RADIAL
[2017-05-20] VITALS (24 sets, daily range): BP systolic 92–140; BP diastolic 50–74
[2017-05-20 05:14] LABS: ABG SAMPLE TYPE ARTERIAL; BE(vivo) 16.9 mmol/L (-2 to +3); HCO3 42.6 mmol/L (22.0-26.0); LACTATE 1.41 mmol/L (0.5-2.0); O2(CT) 15.6 mL/dL (15.0-23.0); O2Hb 90.2 % (92.0-98.0); PCO2 55.4 mmHg (35.0-45.0); pH 7.504 (7.360-7.450); sO2 90.7 % (92.0-98.0); tCO2 44.3 mmol/L (24.0-30.0)
[2017-05-20 05:15] LABS: STICK SITE LRA
[2017-05-20 05:16] LABS: ABG COMMENT BIPAP 16/6 10 30%; PO2 55.4 mmHg (80.0-100.0); Pressure Support 16 cm H20
[2017-05-20 06:35] LABS: ALBUMIN 2.4 g/dL (3.4-5.0); CALCIUM 11.2 mg/dL (8.5-10.1); CREATININE 1.1 mg/dL (0.6-1.0); MAGNESIUM 2.2 mg/dL (1.8-2.4); TOTAL BILIRUBIN 0.6 mg/dL (<0.1-1.0); TOTAL PROTEIN 5.6 g/dL (6.4-8.2)
[2017-05-21] VITALS (19 sets, daily range): BP systolic 104–137; BP diastolic 46–97
[2017-05-21 05:36] LABS: ANION GAP < 0 mmol/L (7-16); BUN 40 mg/dL (7-18); CHLORIDE 104 mmol/L (98-107); CO2 43 mmol/L (21-32); GLUCOSE 231 mg/dL (74-106); POTASSIUM 3.7 mmol/L (3.5-5.1); SODIUM 146 mmol/L (136-145)
[2017-05-22] VITALS (15 sets, daily range): BP systolic 101–136; BP diastolic 48–67
[2017-05-22 05:05] LABS: HEMATOCRIT 32.7 % (37.0-47.0); HEMOGLOBIN 10.4 gm/dL (12.0-15.0); MCH 27.4 pg (26.0-34.0); MCHC 31.7 g/dL (28.0-37.0); MCV 86.4 fL (80.0-100.0); PLATELET COUNT 172 thou/uL (150-400); RBC 3.78 mil/uL (4.20-5.00); RDW 14.4 % (10.5-14.5); WBC 13.7 thou/uL (4.0-11.0)
[2017-05-22 05:11] LABS: MANUAL DIFF YES
[2017-05-22 05:37] LABS: ALKALINE PHOSPHATASE 60 U/L (46-116); ANION GAP < 0 mmol/L (7-16); BUN 35 mg/dL (7-18); CALCIUM 10.5 mg/dL (8.5-10.1); CHLORIDE 101 mmol/L (98-107); CO2 42 mmol/L (21-32); GLUCOSE 188 mg/dL (74-106); MAGNESIUM 2.1 mg/dL (1.8-2.4); SGOT 18 U/L (15-37); SGPT 32 U/L (30-65); SODIUM 142 mmol/L (136-145); TOTAL BILIRUBIN 0.4 mg/dL (<0.1-1.0); TOTAL PROTEIN 5.2 g/dL (6.4-8.2)
[2017-05-22 06:46] LABS: ABSOLUTE NEUTROPHILS 13.2 thou/uL (1.4-8.2); PLATELET ESTIMATE NORMAL; TOTAL CELL COUNT 100
[2017-05-22 09:14] LABS: CALCIUM 10.3 mg/dL (8.5-10.1); PHOSPHORUS 2.4 mg/dL (2.5-4.9)
[2017-05-23 04:00] VITALS: BP 128/65
[2017-05-23 04:10] LABS: ALBUMIN 2.1 g/dL (3.4-5.0); ALKALINE PHOSPHATASE 91 U/L (46-116); ANION GAP < 0 mmol/L (7-16); BUN 35 mg/dL (7-18); CALCIUM 10.2 mg/dL (8.5-10.1); CHLORIDE 99 mmol/L (98-107); CO2 42 mmol/L (21-32); GLUCOSE 265 mg/dL (74-106); MAGNESIUM 2.2 mg/dL (1.8-2.4); POTASSIUM 4.1 mmol/L (3.5-5.1); SGOT 20 U/L (15-37); SGPT 40 U/L (30-65); SODIUM 137 mmol/L (136-145); TOTAL BILIRUBIN 0.3 mg/dL (<0.1-1.0); TOTAL PROTEIN 5.3 g/dL (6.4-8.2)
[2017-05-23 07:00] VITALS: BP 144/77
[2017-05-23 11:00] VITALS: BP 151/75
[2017-05-23 15:06] LABS: KAPPA FREE LIGHT CHAINS 8.6 mg/L (3.3-19.4); KAPPA/LAMBDA RATIO 2.26 (0.26-1.65); LAMBDA FREE LIGHT CHAINS 3.8 mg/L (5.7-26.3)
[2017-05-23 15:54] VITALS: BP 133/59
[2017-05-23 19:48] VITALS: BP 150/55
[2017-05-24 04:03] VITALS: BP 132/58
[2017-05-24 06:30] LABS: CALCIUM 10.4 mg/dL (8.5-10.1); PHOSPHORUS 2.1 mg/dL (2.5-4.9)
[2017-05-24 07:22] VITALS: BP 118/57
[2017-05-24 08:29] LABS: ALBUMIN 2.2 g/dL (3.4-5.0); ALKALINE PHOSPHATASE 76 U/L (46-116); ANION GAP < 0 mmol/L (7-16); BUN 32 mg/dL (7-18); CALCIUM 10.4 mg/dL (8.5-10.1); CHLORIDE 101 mmol/L (98-107); CO2 42 mmol/L (21-32); CREATININE 0.9 mg/dL (0.6-1.0); GLUCOSE 189 mg/dL (74-106); POTASSIUM 5.7 mmol/L (3.5-5.1); SGOT 20 U/L (15-37); SGPT 39 U/L (30-65); SODIUM 139 mmol/L (136-145); TOTAL BILIRUBIN 0.4 mg/dL (<0.1-1.0); TOTAL PROTEIN 5.1 g/dL (6.4-8.2)
[2017-05-24 11:15] VITALS: BP 147/51
[2017-05-24 12:07] LABS: ALBUMIN 2.7 g/dL (2.9-4.4); ALPHA 1 0.3 g/dL (0.0-0.4); ALPHA 2 0.9 g/dL (0.4-1.0); BETA 0.9 g/dL (0.7-1.3); GAMMA 0.6 g/dL (0.4-1.8); M-SPIKE Not Observed g/dL (Not Observed)
[2017-05-24 15:30] VITALS: BP 144/51
[2017-05-24 20:27] VITALS: BP 149/52
[2017-05-25 03:24] LABS: CALCIUM 10.6 mg/dL (8.5-10.1)
[2017-05-25 04:02] VITALS: BP 150/56
[2017-05-25 11:44] VITALS: BP 186/71
[2017-05-25 15:15] VITALS: BP 185/64
[2017-05-25 17:54] LABS: ABG SAMPLE TYPE ARTERIAL; BE(vivo) 14.7 mmol/L (-2 to +3); HCO3 47.1 mmol/L (22.0-26.0); O2(CT) 18.1 mL/dL (15.0-23.0); PO2 102.8 mmHg (80.0-100.0); sO2 96.2 % (92.0-98.0); tCO2 50.5 mmol/L (24.0-30.0)
[2017-05-25 17:55] LABS: PCO2 111.6 mmHg (35.0-45.0); STICK SITE R.RADIAL; pH 7.243 (7.360-7.450)
[2017-05-25 18:32] LABS: ANION GAP < 0 mmol/L (7-16); BUN 30 mg/dL (7-18); CALCIUM 10.8 mg/dL (8.5-10.1); CHLORIDE 98 mmol/L (98-107); CO2 43 mmol/L (21-32); CREATININE 0.9 mg/dL (0.6-1.0); GLUCOSE 173 mg/dL (74-106); POTASSIUM 5.5 mmol/L (3.5-5.1); SODIUM 140 mmol/L (136-145)
[2017-05-25 20:28] VITALS: BP 175/76
[2017-05-25 21:06] LABS: ABG SAMPLE TYPE ARTERIAL; BE(vivo) 15.7 mmol/L (-2 to +3); LACTATE 0.88 mmol/L (0.5-2.0); O2Hb 92.5 % (92.0-98.0); PCO2 65.8 mmHg (35.0-45.0); PO2 61.6 mmHg (80.0-100.0); pH 7.433 (7.360-7.450); sO2 91.4 % (92.0-98.0)
[2017-05-25 21:07] LABS: ABG COMMENT BIPAP 16/6 10; Pressure Support 16 cm H20; STICK SITE RRA
[2017-05-26 04:49] VITALS: BP 122/60
[2017-05-26 05:42] LABS: CALCIUM 10.4 mg/dL (8.5-10.1); PHOSPHORUS 2.8 mg/dL (2.5-4.9)
[2017-05-26 07:01] LABS: ABG SAMPLE TYPE ARTERIAL; BE(vivo) 14.9 mmol/L (-2 to +3); HCO3 44.7 mmol/L (22.0-26.0); LACTATE 0.77 mmol/L (0.5-2.0); O2(CT) 17.6 mL/dL (15.0-23.0); O2Hb 96.3 % (92.0-98.0); PCO2 85.5 mmHg (35.0-45.0); PO2 108.5 mmHg (80.0-100.0); pH 7.336 (7.360-7.450); sO2 97.4 % (92.0-98.0); tCO2 47.3 mmol/L (24.0-30.0)
[2017-05-26 07:02] LABS: STICK SITE L.RADIAL
[2017-05-26 07:25] VITALS: BP 164/74
[2017-05-26 07:44] LABS: HEMATOCRIT 37.8 % (37.0-47.0); HEMOGLOBIN 12.2 gm/dL (12.0-15.0); MCH 27.7 pg (26.0-34.0); MCHC 32.3 g/dL (28.0-37.0); MCV 85.8 fL (80.0-100.0); RBC 4.4 mil/uL (4.20-5.00); RDW 14.7 % (10.5-14.5); WBC 10.4 thou/uL (4.0-11.0)
[2017-05-26 07:52] LABS: ANION GAP < 0 mmol/L (7-16); BUN 30 mg/dL (7-18); CALCIUM 10.1 mg/dL (8.5-10.1); CHLORIDE 99 mmol/L (98-107); CO2 43 mmol/L (21-32); CREATININE 0.9 mg/dL (0.6-1.0); GLUCOSE 158 mg/dL (74-106); POTASSIUM 5.4 mmol/L (3.5-5.1); SODIUM 140 mmol/L (136-145)
[2017-05-26 07:58] LABS: ALBUMIN 2.6 g/dL (3.4-5.0); ALKALINE PHOSPHATASE 67 U/L (46-116); SGOT 21 U/L (15-37); SGPT 46 U/L (30-65); TOTAL BILIRUBIN 0.6 mg/dL (<0.1-1.0); TOTAL PROTEIN 6.1 g/dL (6.4-8.2)
[2017-05-26 12:30] VITALS: BP 138/65
[2017-05-27 03:52] VITALS: BP 172/97
[2017-05-27] MEDS ORDERED: ATORVASTATIN CA40 MG PO (17:49)
[2017-05-27] MEDS ORDERED: PRINIVIL20 MG PO (17:50)
[2017-05-27] MEDS ORDERED: OMEPRAZOLE 20 M20 M1 PO (17:52)
[2017-05-27] MEDS ORDERED: LOPRESSOR25 PO (17:53)
[2017-05-27] MEDS ORDERED: MAG-OXIDE400 MG PO (17:54)
[2017-05-27] MEDS ORDERED: LEVOTHYROXINE0.05 MG PO (17:55)
[2017-05-27] MEDS ORDERED: MYFORTIC360 MG PO (17:56)
[2017-05-27] MEDS ORDERED: TACROLIMUS1 MG PO (17:58)
== END 2017-05-28 06:20 | DRG 177 ==
LOC: ER 16:08 → EROBS 16:45 → ICU 16:45 → 2N 05-22 14:00
PROVIDERS: Emergency Medicine; Hospitalist; Internal Medicine Endocrinology, Diabetes & Metabolism; Internal Medicine Pulmonary Disease
PROC: 5A09557 Assistance with Respiratory Ventilation, Greater than 96 Consecutive Hours, Continuous Positive Airway Pressure (ICD-10-PCS; principal; 2017-05-18)
DX: J69.0 Pneumonitis due to inhalation of food and vomit (principal); J96.22 Acute and chronic respiratory failure with hypercapnia; J96.21 Acute and chronic respiratory failure with hypoxia; J44.1 Chronic obstructive pulmonary disease with (acute) exacerbation; E87.3 Alkalosis; E87.0 Hyperosmolality and hypernatremia; K21.9 Gastro-esophageal reflux disease without esophagitis; Z66 Do not resuscitate; E05.90 Thyrotoxicosis, unspecified without thyrotoxic crisis or storm; R41.0 Disorientation, unspecified; E73.9 Lactose intolerance, unspecified; N18.9 Chronic kidney disease, unspecified; I12.9 Hypertensive chronic kidney disease with stage 1 through stage 4 chronic kidney disease, or unspecified chronic kidney disease; E07.81 Sick-euthyroid syndrome; Y95 Nosocomial condition; N60.19 Diffuse cystic mastopathy of unspecified breast; E21.3 Hyperparathyroidism, unspecified; E87.5 Hyperkalemia; G47.33 Obstructive sleep apnea (adult) (pediatric); Z79.82 Long term (current) use of aspirin; Z79.899 Other long term (current) drug therapy; Z87.891 Personal history of nicotine dependence; Z88.8 Allergy status to other drugs, medicaments and biological substances; Z91.041 Radiographic dye allergy status
CPT/HCPCS: 10078; 10081